=== PATIENT | male | born 1970 | race Caucasian/White ===

== ENCOUNTER 2017-08-21 12:46 | Emergency (ER) | payer SELFPAY ==
[~2017-08-21] VITALS: Ht 188 cm; Wt 82.0 kg
[~2017-08-21 12:46] MED LIST: GLIP5 PO; METF-324 PO; SIMV20 PO; VICOTAB4 PO; ZITH500T PO
[2017-08-21 12:56] VITALS: BP 173/116; PULSE 117; RESP 17; TEMP 98.5; O2SAT 98
[2017-08-21 13:25] LABS: BILIRUBIN, URINE NEG (NEG); GLUCOSE,URINE 1000 OR GREATER mg/dL (NEG); KETONE, URINE 80 mg/dL (NEG); NITRITE,URINE NEG (NEG); URINE COLOR YELLOW (YELLW/STRAW); URINE LEUKOCYTE ESTERASE NEG (NEG)
[2017-08-21 13:41] LABS: BACTERIA, URINE RARE /hpf; SQUAMOUS EPITHELIAL CELL URINE <1 /hpf (0-5)
[2017-08-21 13:43] LABS: BLOOD, URINE TRACE (NEG)
[2017-08-21] MEDS ORDERED: KETOROLAC TROMETHAMINE 30 MG/ML (IVP) VIAL IV PUSH ONE (14:15)
[2017-08-21] MEDS ORDERED: SODIUM CHLOR 0.9% 1000 ML INJ 1,000 ML IV ONE ×2 (14:15→15:15)
[2017-08-21] MEDS ORDERED: SODIUM CHLORIDE 0.9% FLUSH 10 ML FLUSH IVF PRN (14:15)
[2017-08-21 14:27] VITALS: RESP 16; O2SAT 99
[2017-08-21 14:31] LABS: AUTOMATED NEUTROPHIL # 5.3 TH/MM3 (1.8-7.7); BASOPHIL % 0.2 % (0.0-2.0); EOSINOPHIL % 0.4 % (0.0-4.0); HEMATOCRIT 41.3 % (39.0-51.0); HEMOGLOBIN 14.6 GM/DL (13.0-17.0); LYMPH % 14.3 % (9.0-44.0); MEAN CELL VOLUME 98.6 FL (80.0-100.0); MEAN CORPUSCULAR HGB CONC 35.5 % (32.0-36.0); MEAN PLATELET VOLUME 8.6 FL (7.0-11.0); MONO % 10.2 % (0.0-8.0); MONOCYTE # 0.7 TH/MM3 (0-0.9); NEUT % 74.9 % (16.0-70.0); PLATELET COUNT 125 TH/MM3 (150-450); RED BLOOD COUNT 4.19 MIL/MM3 (4.50-5.90); RED CELL DISTRIBUTION WIDTH 12.4 % (11.6-17.2); WHITE BLOOD COUNT 7.1 TH/MM3 (4.0-11.0)
[2017-08-21 14:45] LABS: BICARBONATE 18.1 MEQ/L (21.0-32.0); BLOOD UREA NITROGEN 6 MG/DL (7-18); CALCIUM 9.1 MG/DL (8.5-10.1); CHLORIDE 94 MEQ/L (98-107); CREATININE 0.92 MG/DL (0.60-1.30); GLOMERULAR FILTRATION RATE 88 ML/MIN (>89); GLUCOSE,RANDOM 196 MG/DL (74-106); MAGNESIUM 2.2 MG/DL (1.5-2.5); SODIUM (NA) 134 MEQ/L (136-145)
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
[2017-08-21 14:54] LABS: TROPONIN I LESS THAN 0.02 NG/ML (0.02-0.05)
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
[2017-08-21 15:48] VITALS: RESP 18
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
[2017-08-21 17:30] LABS: ALBUMIN 3.6 GM/DL (3.4-5.0); ALT (GPT) 85 U/L (12-78); AST (GOT) 73 U/L (15-37); BICARBONATE 20.2 MEQ/L (21.0-32.0); BLOOD UREA NITROGEN 6 MG/DL (7-18); CALCIUM 7.8 MG/DL (8.5-10.1); CHLORIDE 101 MEQ/L (98-107); CREATININE 0.78 MG/DL (0.60-1.30); GLOMERULAR FILTRATION RATE 106 ML/MIN (>89); GLUCOSE,RANDOM 160 MG/DL (74-106); SODIUM (NA) 138 MEQ/L (136-145)
[2017-08-21 17:34] LABS: ALKALINE PHOSPHATASE 73 U/L (45-117)
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
--- NOTE | 2017-08-22 13:55 | EKG ---
Date Performed: 08/21/2017 Time Performed: 14:20:09 PTAGE: 46 years EKG: SINUS TACHYCARDIA WITH SHORT NM INTERVAL LEFT VENTRICULAR HYPERTROPHY AND ST-T CHANGE When compared to previous tracing, sinus rate has increased. There is now fairly diffuse ST changes, which are new since prior Tracing. Consider ischemia. ABNORMAL ECG PREVIOUS TRACING : 07/19/2009 01.14 DOCTOR: Vipin Bowen Interpretating Date/Time 08/22/2017 13:55:04
== END 2017-08-21 19:44 | disposition home or self-care (01) ==
LOC: NEPD 12:46
DX: R55 Syncope and collapse (principal); E88.89 Other specified metabolic disorders; R23.3 Spontaneous ecchymoses; R94.31 Abnormal electrocardiogram [ECG] [EKG]; J98.11 Atelectasis; R51 Headache; I10 Essential (primary) hypertension; E11.9 Type 2 diabetes mellitus without complications; E78.00 Pure hypercholesterolemia, unspecified; Y09 Assault by unspecified means; Z79.899 Other long term (current) drug therapy
CPT/HCPCS: 36600; 70450; 70486; 71045; 80053; 80307; 81001; 82010; 82550; 82552; 82805; 83735; 84484; 85025; 93005; 96361; 96374; 99285; J1885; J7030; 80048